=== PATIENT | female | born 1945 | race Caucasian/White ===

== ENCOUNTER → 2017-10-08 | Outpatient (CLI) | payer MEDICARE, OTHER ==
[~2017-10-08] MED LIST: ATEN25 PO; HYDR-86; Kristalose20 GM PO; LOSA25 PO; MELO7.5 PO; MIRALAX17 GM PO; PROM25; Pantoprazole So40 MG PO; Percocet 10-321 EACH PO; Percocet 5-3251 EACH PO
== END | disposition home or self-care (01) ==
LOC: PLD 13:39 → LAB SHORT 13:39
DX: D22.71 Melanocytic nevi of right lower limb, including hip (principal); D22.72 Melanocytic nevi of left lower limb, including hip
CPT/HCPCS: 88305

== ENCOUNTER → 2018-04-26 | Outpatient (CLI) | payer MEDICARE, OTHER | END | disposition home or self-care (01) | LOC: PLD 08:43 → LAB SHORT 08:43 | DX: D22.72 Melanocytic nevi of left lower limb, including hip (principal); L57.0 Actinic keratosis | CPT/HCPCS: 88305 ==

== ENCOUNTER 2018-09-01 08:32 | Day surgery (SDC) | payer MEDICARE, OTHER ==
[~2018-09-01] VITALS: Ht 165.1 cm; Wt 81.2 kg
[~2018-09-01 08:32] MED LIST changes: +ASCO500; +ATOR10 PO; +ERGO400; +FOLATE; +MAGNESIUM; +PROBIOTIC1 EAC1; +PROM25 PO; +Papaya1 EACH; +VIT1CAPS12; +VITAMIN B122500 MC1
--- NOTE | 2018-09-01 09:18 | NUR ---
09/01/18 0918 Branden Chandra PATIENT DETERMINED TO BE ASA APPROPRIATE FOR PROPOFOL SEDATION PRIOR TO START OF PROCEDURE BY . 3-LEAD EKG REVIEWED WITH PHYSICIAN PRIOR TO START OF PROCEDURE.PATIENT CONFIRMS NPO STATUS AND AGREES WITH SCHEDULED PROCEDURE.History, Chart, Medications and Allergies reviewed before start of procedure.MONITOR INTACT WITH CONTINUOUS PULSE OXIMETRY AND INTERMITTENT BP.O2 VIA N/C INTACT THROUGHOUT SEDATION/PROCEDURE.HURRICAINE SPRAY TO OROPHARYX.Bite Block Placed
--- NOTE | 2018-09-01 09:25 | NUR ---
Ambulatory in Day Surgery. History, Chart, Medications and Allergies reviewed before start of procedure. Lungs clear T/O to Auscultation. Patient confirms NPO status and agrees with scheduled surgery. Pre-Op teaching done. Pt verbalizes understanding. Patient States Post-Procedure ride home has been arranged.
--- NOTE | 2018-09-01 10:17 | NUR ---
ML WATER WITHOUT DIFFICUITY, STATES UNDERSTAND HOME CARE.AND FOLLOW UP
== END 2018-09-01 22:35 | disposition home or self-care (01) ==
LOC: ORSCMMR 08:32 → ORD 09:30 → ORSCMMR 22:35
PROVIDERS: Internal Medicine Gastroenterology
PROC: 0DB48ZX Excision of Esophagogastric Junction, Via Natural or Artificial Opening Endoscopic, Diagnostic (ICD-10-PCS; principal; 2018-09-01 09:30)
PROC: 0DB88ZX Excision of Small Intestine, Via Natural or Artificial Opening Endoscopic, Diagnostic (ICD-10-PCS; principal; 2018-09-01 09:30)
PROC: 0DB58ZX Excision of Esophagus, Via Natural or Artificial Opening Endoscopic, Diagnostic (ICD-10-PCS; principal; 2018-09-01 09:30)
DX: R10.13 Epigastric pain (principal); K29.80 Duodenitis without bleeding; K44.9 Diaphragmatic hernia without obstruction or gangrene; K22.2 Esophageal obstruction; R11.2 Nausea with vomiting, unspecified; I10 Essential (primary) hypertension; E78.00 Pure hypercholesterolemia, unspecified; Z79.899 Other long term (current) drug therapy
CPT/HCPCS: 88305; 88342; J7120

== ENCOUNTER → 2019-08-31 | Outpatient (CLI) | payer MEDICARE, OTHER ==
[2019-09-02 13:07] LABS: M-SPIKE, % Not Observed % (Not Observed); PROTEIN,TOTAL,URINE 5.4 mg/dL (Not Estab.)
== END | disposition home or self-care (01) ==
LOC: LAB SHORT 03:30 → OLS 03:30 → LAB FUT 08-29 10:00
PROVIDERS: Internal Medicine
DX: R79.9 Abnormal finding of blood chemistry, unspecified (principal)
CPT/HCPCS: 81050; 84156; 84166

== ENCOUNTER → 2020-09-03 | Outpatient (CLI) | payer MEDICARE, OTHER ==
[2020-09-03 10:53] LABS: Protein, Urine Quantitative 6.6 mg/dL (0.0-11.9)
[2020-09-03 10:56] LABS: Microalbumin, Urine Quant. <5.000 mg/L (0.000-20.000)
== END | disposition home or self-care (01) ==
LOC: LAB 07:30 → LAB SHORT 07:30
PROVIDERS: Internal Medicine Nephrology
DX: N18.2 Chronic kidney disease, stage 2 (mild) (principal); D63.1 Anemia in chronic kidney disease; N25.81 Secondary hyperparathyroidism of renal origin; E55.9 Vitamin D deficiency, unspecified; E78.00 Pure hypercholesterolemia, unspecified; R76.9 Abnormal immunological finding in serum, unspecified; R94.5 Abnormal results of liver function studies; R94.6 Abnormal results of thyroid function studies
CPT/HCPCS: 81050; 82043; 82570; 84156

== ENCOUNTER → 2020-12-26 | Outpatient (CLI) | payer MEDICARE, OTHER | END | disposition home or self-care (01) | LOC: LAB SHORT 13:52 → PLD 13:52 | DX: D22.5 Melanocytic nevi of trunk (principal) | CPT/HCPCS: 88305 ==

== ENCOUNTER 2023-08-13 01:45 | Day surgery (SDC) | payer MEDICARE, OTHER ==
[~2023-08-13 01:45] MED LIST changes: -ASCO500; +ASCO500 PO; +PROBIOTIC1 EA14 PO; -PROBIOTIC1 EAC1
[2023-08-13 09:32] VITALS: BP 153/82
[2023-08-13] MEDS ORDERED: CATAPRES0.1 MG PO (09:40)
[2023-08-13] MEDS ORDERED: ASPI81CH PO (09:41)
== END 2023-08-13 10:37 | disposition home or self-care (01) ==
LOC: ATC 01:45
DX: E27.40 Unspecified adrenocortical insufficiency (principal); I12.9 Hypertensive chronic kidney disease with stage 1 through stage 4 chronic kidney disease, or unspecified chronic kidney disease; N18.1 Chronic kidney disease, stage 1; N25.81 Secondary hyperparathyroidism of renal origin
CPT/HCPCS: 80400; 82533; 96374

== ENCOUNTER → 2023-11-23 | Outpatient (CLI) | payer MEDICARE ==
[~2023-11-23] MED LIST changes: +ASPI81CH PO; +CATAPRES0.1 MG PO
== END | disposition home or self-care (01) ==
LOC: LAB SHORT 11:04 → LAB 11:04
DX: L57.8 Other skin changes due to chronic exposure to nonionizing radiation (principal); L90.5 Scar conditions and fibrosis of skin
CPT/HCPCS: 88305